=== PATIENT | male | born 1980 ===

== ENCOUNTER 2024-02-19 16:03 | Emergency (ER) | payer MEDICAID, OTHER ==
[~2024-02-19] VITALS: Ht 193 cm; Wt 120.5 kg
[2024-02-19 18:16] VITALS: BP 129/80; PULSE 69; RESP 18; TEMP 97.8; O2SAT 99
== END 2024-02-19 17:20 | disposition home or self-care (01) ==
LOC: ER 16:06
DX: Z00.00 Encounter for general adult medical examination without abnormal findings (principal)
CPT/HCPCS: 99283